=== PATIENT | female | born 1980 | race Two or more races ===

== ENCOUNTER 2018-01-09 16:11 | Emergency (ER) | payer OTHER ==
[~2018-01-09] VITALS: Ht 149.9 cm; Wt 55.8 kg
[2018-01-09 16:11] VITALS: BP 108/64
[2018-01-09] MEDS ORDERED: LORAZEPAM 1 MG TABLET ONE ×2 (17:20→18:25)
[2018-01-09] MEDS: LORAZEPAM 1 MG TABLET PO ONE ×2 (17:23→18:28)
== END 2018-01-09 18:35 | disposition home or self-care (01) ==
LOC: ER 16:13
DX: F41.9 Anxiety disorder, unspecified (principal); F45.8 Other somatoform disorders; F41.0 Panic disorder [episodic paroxysmal anxiety]
CPT/HCPCS: A4606; Z7610